=== PATIENT | female | born 2005 | race Caucasian/White ===

== ENCOUNTER 2023-11-19 18:34 | Emergency (ER) | payer SELFPAY ==
[2023-11-19 19:12] LABS: Specific Gravity > 1.030 (1.005-1.030); Sqamous Epithelial <5 /HPF (None Seen); Urine Bacteria None Seen /HPF (<20); Urine Bilirubin NEGATIVE (Negative); Urine Blood 2+ (Negative); Urine Clarity Clear (Clear); Urine Color Light-Yellow (Yellow); Urine Culture Reflex Order NOT NEEDED; Urine Glucose NEGATIVE (Negative); Urine Ketones NEGATIVE (Negative); Urine Microscopic Reflex YN ORDER UMIC; Urine Mucus Slight /HPF (None Seen); Urine Nitrite NEGATIVE (Negative); Urine Protein NEGATIVE (Negative); Urine RBC <5 /HPF (None Seen); Urine Urobilinogen Normal (Normal); Urine pH 5.5 (5.0-7.0)
--- NOTE | 2023-11-19 19:34 | RAD REPORT ---
EXAM DESCRIPTION: US - Transvaginal Study Probe - 11/19/2023 7:26 pm CLINICAL HISTORY: Abd pain;Vaginal bleeding Pelvic pain. COMPARISON: No comparisons FINDINGS: The uterus is normal in size, shape and echotexture. The uterus measures 8.7 x 4.5 x 3.3 c m. The endometrial stripe measures 8 mm, normal. Both ovaries are normal in size, shape and echotexture. The right ovary measures 3.5 x 2.3 x 2.0 cm. The left ovary measures 3.7 x 2.7 x 3.1 cm. 25 mm left ovarian follicle. No ovarian or parovarian l esions. No adnexal masses. Normal Doppler blood flow was demonstrated to both ovaries. No significant pelvic ascites. IMPRESSION: Unremarkable study.
--- NOTE | 2023-11-19 20:00 | EDPHYS ---
Physician Documentation [facility] Name: Madina Barahona Age: 18 yrs Sex: Female : 2005 Arrival Date: 11/19/2023 Time: 18:34 Bed 18 Private MD: ED Physician Janie Watson HPI: 11/18 19:57 This 18 yrs old Female presents to ER via Ambulatory with complaints of Vaginal kb Bleeding. 19:57 Pt is a 18 year old female who presents for vaginal bleeding. States she got off of her kb period a week ago, then had spotting 4 days ago and steady bleeding today. Reports cramping pain to left side of pelvis. . 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 - Infectious Disease History:: Denies. - Social history:: Smoking status: Patient denies any tobacco usage or history of. ROS: 19:56 Constitutional: As per HPI kb Exam: 19:56 Constitutional: This is a well developed, well nourished patient who is awake, alert, kb and in no acute distress. Head/Face: Normocephalic, atraumatic. ENT: Moist Mucous membranes Cardiovascular: Regular rate Respiratory: Respirations even and unlabored. No increased work of breathing. Talking in full sentences Abdomen/GI: Soft, non-tender. No distention Skin: Warm, dry with normal turgor. Normal color. MS/ Extremity: Pulses equal, no cyanosis. Neurovascular intact. Full, normal range of motion. Neuro: Awake and alert, GCS 15, oriented to person, place, time, and situation. Moves all extremities. Normal gait. Vital Signs: 18:45 BP 124 / 83; Pulse 90; Resp 18 S; Temp 97.9; Pulse Ox 99% on R/A; Weight 70.31 kg (R); as6 Height 5 ft. 2 in. (R); Pain 2/10; 19:45 BP 124 / 83; Pulse 92; Resp 17; Pulse Ox 96% ; Pain 0/10; jj7 18:45 Body Mass Index 28.35 (70.31 kg, 157.48 cm) as6 18:45 Pain Scale: Adult as6 19:45 Pain Scale: Adult jj7 MDM: 18:43 Patient medically screened. kb 19:58 Differential diagnosis: ectopic , menorrhea, ovarian cyst, postcoital kb bleeding, urinary tract infection. Data reviewed: vital signs, nurses notes. Test considered but Not performed: Labs: cbc, bmp considered but vss, pt denies heavy bleeding, shortness of breath. Counseling: I had a detailed discussion with the patient and/or guardian regarding the historical points, exam findings, and any diagnostic results supporting the discharge/admit diagnosis, lab results, radiology results, the need for outpatient follow up, an OB/Gyne specialist, to return to the emergency department if symptoms worsen or persist or if there are any questions or concerns that arise at home. 11/18 18:54 Order name: Test, Urine; Complete Time: 19:14 kb 11/18 18:54 Order name: Urinalysis w/ reflexes; Complete Time: 19:14 kb 11/18 19:26 Order name: Transvaginal Study Probe; Complete Time: 19:37 EDMS Administered Medications: No medications were administered Disposition Summary: 11/19/23 20:00 Discharge Ordered Notes: Location: Home kb Condition: Stable kb Diagnosis - Abnormal uterine and vaginal bleeding, unspecified kb Followup: kb - With: Emergency Department - When: As needed - Reason: Worsening of condition Followup: kb - With: Private Physician - When: 2 - 3 days - Reason: Recheck today's complaints, Continuance of care, Re-evaluation by your physician Discharge Instructions: - Discharge Summary Sheet kb - Abnormal Uterine Bleeding, [id number] kb Forms: - Medication Reconciliation Form kb - Antibiotic Education kb - Prescription Opioid Use kb - Patient Portal Instructions kb - Leadership Thank You Letter kb Signatures: Dispatcher [employer] Kena Crabtree FNP-C FNP-Reggie Britton, RN RN as6 Corrections: (The following items were deleted from the chart) 18:47 18:46 PSHx: None; as6 as6 18:47 18:46 PSHx: None; as6 as6 18:54 18:54 Pelvis Complete+US.RAD.BRZ ordered. EDMS EDMS
--- NOTE | 2023-11-19 20:00 | ER ---
Nurse's Notes [facility] Name: Madina Barahona Age: 18 yrs Sex: Female : 2005 Arrival Date: 11/19/2023 Time: 18:34 Bed 18 Private MD: Diagnosis: Abnormal uterine and vaginal bleeding, unspecified Presentation: 11/18 18:47 Chief complaint: Patient states: vaginal bleeding that started shortly after her cycle as6 ended and has been getting heavier in flow. Coronavirus screen: At this time, the client does not indicate any symptoms associated with coronavirus-19. Ebola Screen: No symptoms or risks identified at this time. Initial Sepsis Screen: Does the patient meet any 2 criteria? No. Patient's initial sepsis screen is negative. Does the patient have a suspected source of infection? No. Patient's initial sepsis screen is negative. Risk Assessment: Do you want to hurt yourself or someone else? Patient reports no desire to harm self or others. Onset of symptoms was September 17, 2023. 18:47 Acuity: CHANELL 3 as6 18:47 Method Of Arrival: Ambulatory as6 Triage Assessment: 19:10 General: Appears in no apparent distress. comfortable, Behavior is calm, cooperative, jj7 appropriate for age. 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 - Infectious Disease History:: Denies. - Social history:: Smoking status: Patient denies any tobacco usage or history of. Screenin:10 [facility] ED Fall Risk Assessment (Adult) History of falling in the last 3 months, jj7 including since admission No falls in past 3 months (0 pts) Confusion or Disorientation No (0 pts) Intoxicated or Sedated No (0 pts) Impaired Gait No (0 pts) Mobility Assist Device Used No (0 pt) Altered Elimination No (0 pt) Score/Fall Risk Level 0 - 2 = Low Risk Oriented to surroundings, Maintained a safe environment, Educated pt \T\ family on fall prevention, incl call for assistance when getting out of bed. Abuse screen: Denies threats or abuse. Nutritional screening: No deficits noted. Tuberculosis screening: No symptoms or risk factors identified. Assessment: 19:10 Pain: Denies pain. : Reports vaginal bleeding that is spotty. jj7 Vital Signs: 18:45 BP 124 / 83; Pulse 90; Resp 18 S; Temp 97.9; Pulse Ox 99% on R/A; Weight 70.31 kg (R); as6 Height 5 ft. 2 in. (R); Pain 2/10; 19:45 BP 124 / 83; Pulse 92; Resp 17; Pulse Ox 96% ; Pain 0/10; jj7 18:45 Body Mass Index 28.35 (70.31 kg, 157.48 cm) as6 18:45 Pain Scale: Adult as6 19:45 Pain Scale: Adult jj7 ED Course: 18:39 Patient arrived in ED. mr 18:43 Kena Sandoval [facility]-C [facility] kb 18:43 Janie Watson MD is Attending Physician. kb 18:46 Arm band placed on left wrist. as6 18:48 Triage completed. as6 19:02 Marizol Stein, RN is Primary Nurse. jj7 19:07 Test, Urine Sent. oe 19:08 Urinalysis w/ reflexes Sent. oe 19:08 Urine collected: clean catch specimen, celso colored. oe 19:10 Patient has correct armband on for positive identification. Bed in low position. Call jj7 light in reach. Provided Education on: USE OF CALL YEAGER. 19:10 No provider procedures requiring assistance completed. Patient did not have IV access jj7 during this emergency room visit. 19:26 Transvaginal Study Probe In Process Unspecified. EDMS Administered Medications: No medications were administered Medication: 19:10 VIS not applicable for this client. jj7 Outcome: 20:00 Discharge ordered by . kb 20:09 Discharged to home ambulatory, with significant other, jj7 20:09 Condition: good 20:09 Discharge instructions given to patient, Instructed on discharge instructions, follow up and referral plans. Demonstrated understanding of instructions, follow-up care, 20:09 Patient left the ED. jj7 Signatures: Dispatcher [employer] EDMS Kena Sandoval FNP-C FNP-[place] Reg Reg John Randle oe Reggie Spaulding RN RN as6 Marizol Stein RN RN jj7 Corrections: (The following items were deleted from the chart) 18:47 18:46 PSHx: None; as6 as6 18:47 18:46 PSHx: None; as6 as6 20:13 20:13 Patient left the ED. jj7 jj7
[2023-11-19 20:24] VITALS: BP 124/83; TEMP 97.9; O2SAT 96
== END 2023-11-19 20:13 | disposition home or self-care (01) ==
LOC: ER 18:34
DX: N93.9 Abnormal uterine and vaginal bleeding, unspecified (principal)
CPT/HCPCS: 76830; 81001; 81025; 99283